=== PATIENT | female | born 1950 | race African-American/Black ===

== ENCOUNTER 2018-04-21 20:04 | Emergency (ER) | payer OTHER ==
[~2018-04-21] VITALS: Ht 165.1 cm; Wt 104.3 kg
[~2018-04-21 20:04] MED LIST: ACETAMINOPHEN650 M5 PO; ADULT LOW DOSE81 MG PO; ADVAIR 250-501 EACH; BENTYL 20 MG TA20 M1; CIPROFLOXACIN500 M1 PO; CRESTOR10 MG PO; DIOVAN HCT 3201 EAC1 PO; GLIPIZIDE 10 MG10 M1; GLIPIZIDE 10 MG10 M1 PO; GLUCOPHAGE1000 MG; GLUCOPHAGE1000 MG PO; HUMALOG100 UNIT/1 SQ; JANUVIA100 MG PO; KEFLEX500 MG PO; LANTUS SUBQ; LISINOPRIL20 MG PO; MACROBID 100 M100 M1 PO; MUCINEX600 MG PO; NAPROSYN500 MG; NORCO 5-325 TA1 EACH PO; PEPCID40 MG PO; PREDNISONE 10 M10 MG; PREDNISONE 20 M20 MG PO; PROAIR HFA8.5 GM IH; SIMVASTATIN40 MG; TRAMADOL 50 MG50 MG; VIBRAMYCIN 100100 MG PO; VISTARIL 25 MG25 M1 PO; ZANTAC 150MG T150 M1; ZESTRIL2.5 MG
[2018-04-21 20:12] VITALS: BP 146/64
[2018-04-21] MEDS ORDERED: MELOXICAM7.5 MG PO (20:53)
== END 2018-04-21 21:03 | disposition home or self-care (01) ==
LOC: ER 20:04
DX: M70.61 Trochanteric bursitis, right hip (principal); Y93.89 Activity, other specified; E11.9 Type 2 diabetes mellitus without complications; Z98.890 Other specified postprocedural states; Z88.5 Allergy status to narcotic agent; Z88.7 Allergy status to serum and vaccine; Z88.8 Allergy status to other drugs, medicaments and biological substances